=== PATIENT | female | born 1980 | race Caucasian/White ===

== ENCOUNTER 2022-05-23 09:27 | Emergency (ER) | payer MEDICAID ==
[~2022-05-23 09:27] MED LIST: HYDR-4383 PO
== END 2022-05-23 12:56 | disposition left against medical advice (07) ==
LOC: ER 09:28
DX: F41.9 Anxiety disorder, unspecified (principal); Z53.21 Procedure and treatment not carried out due to patient leaving prior to being seen by health care provider

== ENCOUNTER 2024-12-17 15:34 | Emergency (ER) | payer MEDICAID ==
[~2024-12-17] VITALS: Ht 170.2 cm; Wt 68.0 kg
[2024-12-17 15:43] VITALS: BP 132/90; PULSE 75; TEMP 98.2; O2SAT 99
--- NOTE | 2024-12-17 16:17 | RADIOLOGY REPORT ---
CLINICAL INDICATION: WRIST PAIN TECHNIQUE: 3 views left wrist DI WRIST, COMPLETE (3VW MIN) Comparison: None FINDINGS/IMPRESSION: : Comminuted fracture of the distal radial metaphysis Carpal bones intact
--- NOTE | 2024-12-17 16:18 | RADIOLOGY REPORT ---
CLINICAL INDICATION: ARM PAIN TECHNIQUE: 2 views left forearm Comparison: None FINDINGS/IMPRESSION: : Comminuted fracture of the distal radial metaphysis Elbow joint intact
[2024-12-17] MEDS: LIDOcaine 1% W/epiNEPHrine 1:100,000 20ml vial SQ STA (17:59)
--- NOTE | 2024-12-17 18:03 | Physician Documentation ---
History of Present Illness ~ Chief Complaint: Arm Pain Stated Complaint: L ARM PAIN Time Seen by MD: 16:07 Primary Medical Doctor: KRISH BOYD HPI Patient is seen today with complaints of pain of her left wrist for four days with date of injury being on Saturday12/14/2024. Patient states he slipped on some grass and tripped over a curb onto her outstretched hand [place] of the gas station. Patient denies any chest pain or shortness of breath or abdominal pain or nausea, vomiting, diarrhea. She has no other concern or complaint at this time. Tetanus within 5 years: No Medication Reconciliation Allergies: Coded Allergies: codeine (Verified Allergy, Severe, 11/07/14) topiramate (Verified Allergy, Severe, 11/07/14) varenicline (Verified Allergy, Severe, 11/07/14) Scheduled Hydrocodone/Acetaminophen ([place] 5-325 Tablet), 1 TAB PO TID PRN Past Medical History Past Medical History: Anxiety Past Surgical History: no surgical history Alcohol Use: None Drug Use: methamphetamine Lives with: Family Lives In: Home Occupation: employed Review of Systems Constitutional: Denies: chills, fever, weakness Eyes: Denies: pain, blurred vision ENT: Denies: ear pain, nose pain, throat pain, mouth pain Respiratory: Denies: cough, shortness of breath Cardiovascular: Denies: chest pain, palpitations Gastrointestinal: Denies: abdominal pain, nausea, vomiting Genitourinary: Denies: burning, dysuria Female Genitalia: Denies: vaginal discharge, pelvic pain Neurological: Denies: headache, dizziness Musculoskeletal: Denies: pain, swelling Integumentary: Denies: rash, lesions Allergic/Immunologic: Denies: hives, itching Hematologic/Lymphatic: Denies: no symptoms reported Psychiatric: Denies: depression, anxiety Physical Exam Vital Signs: Temperature: 98.2, Source: Temporal, Heart Rate: 75, Respiratory Rate: 16, BP: 132/90, Pulse Oximetry: 99, Weight: 68.000 Oxygen Flow Rate: 0 Physical Exam General: Awake and Alert, no acute distress. HEENT: Conjunctiva pink, Sclera clear, Mucus Membranes moist. Neck: Supple without masses and tenderness. Resp: Unlabored. Lungs clear to auscultation bilaterally. Heart: Regular Rate and rhythm, normal S1 and S2 without murmur, rub or gallop. Musculoskeletal: Patient on exam does have obvious deformity of the left distal radius. Patient is neurovascularly intact distally. Patient does have moderate swelling of left wrist and digits. Patient has significant tenderness to palpation to the left distal radius. Motor function is intact distally. Extremities: No cyanosis,clubbing or edema. Skin: Warm and Dry. Progress Results/Orders Results/Orders Completed Orders - CAIT TADEO Lidocaine 1% W/Epi 1:100,000 (Xylocaine (12/17/24 17:23) Oxycodone Immed Release Tablet (Oxy Ir T (12/17/24 18:02) Medications Received in ER Medications (Trade) Dose Ordered Sig/Remy Route PRN Reason Start Time Stop Time Status Last Admin Dose Admin (OXY IR tablet) 10 mg ONCE STAT PO 12/17/24 18:02 12/17/24 18:07 DC 12/17/24 18:11 10 MG Vital Signs 12/17/24 12/17/24 15:43 18:11 Temp 98.2 Pulse 75 Resp 16 16 B/P (MAP) 132/90 Pulse Ox 99 O2 Flow Rate 0 EKG/XRAY/CT/US/VASC/MRI Bone/Soft Tissue X-Ray (Ext.) : Additional Comment X-ray of the left distal radius/left wrist interpreted by myself today shows displaced comminuted fracture of the left distal radius. DIAGNOSTIC RADIOLOGY Patient: NOLVIA TAMAYO Medical Record: [id number] [facility] : 1980, Age: 44 Sex: Female Location: ER Patient Status: REG ER Service Date/Time: 12/17/24 1546 Ordering Physician: BRUNO MIGUEL MD Exam: WRIST, COMPLETE (3VW MIN) CLINICAL INDICATION: WRIST PAIN TECHNIQUE: 3 views left wrist DI WRIST, COMPLETE (3VW MIN) Comparison: None FINDINGS/IMPRESSION: : Comminuted fracture of the distal radial metaphysis Carpal bones intact Electronically Signed by:WANDA GRANT MD Date & Time: 12/17/241614 Dictated by: WANDA GRANT MD Dictation date and time: 12/17/241614 Primary Care Provider: NO PRIMARY CARE PROVIDER cc: BRUNO MIGUEL MD ~ Medical Decision Making Findings Patient is seen today with complaints of pain of her left wrist for four days with date of injury being on Saturday12/14/2024. Patient states he slipped on some grass and tripped over a curb onto her outstretched hand [place] of the gas station. Patient denies any chest pain or shortness of breath or abdominal pain or nausea, vomiting, diarrhea. She has no other concern or complaint at this time. Patient did have x-ray of left distal radius that showed comminuted fracture of the left distal radius. Patient did have splint placed and patient will follow up with [facility] as soon as possible for surgical consult. Patient will return to ED with any worsening, concerning or changing symptoms. Patient will take Tylenol as needed for symptomatic pain relief. Departure Disposition: HOME / SELF CARE / HOMELESS Impression: Primary Impression: Distal radial fracture Qualified Codes: S52.502A - Unspecified fracture of the lower end of left radius, initial encounter for closed fracture Condition: Improved Discharge Instructions: Extremity Fracture Additional Instructions: Patient did have x-ray of left distal radius that showed comminuted fracture of the left distal radius. Patient did have splint placed and patient will follow up with [facility] as soon as possible for surgical consult. Patient will return to ED with any worsening, concerning or changing symptoms. Patient will take Tylenol as needed for symptomatic pain relief. Referrals: NO PRIMARY CARE PROVIDER (PCP) Prescriptions Hydrocodone Bit/Acetaminophen (Hydrocodone-[place] 10-325 Tablet) 10mg/325mg Tablet 1 TAB PO Q12H PRN PRN for pain for 5 Days, #10 TAB Prov: CAIT TADEO 12/17/24 Signature Scribe Signature: No scribe Attestation: No scribe CAIT TADEO Dec 17, 2024 18:03
[2024-12-17 18:11] VITALS: RESP 16
[2024-12-17] MEDS: oxyCODONE IR 5mg (immed. release) tablet PO STA (18:11)
[2024-12-17] MEDS ORDERED: HYDR-3973 PO (19:30)
--- NOTE | 2024-12-17 20:03 | RADIOLOGY REPORT ---
CLINICAL INDICATION: post reduction TECHNIQUE: Left DI WRIST,LIMITED (AP/LAT) Comparison: None FINDINGS/IMPRESSION: : Overlying cast obscures bony and soft-tissue detail. Comminuted and displaced fracture of the distal radius with some interval improvement in alignment postreduction.
== END 2024-12-17 19:41 | disposition home or self-care (01) ==
LOC: ER 15:34
DX: S52.592A Other fractures of lower end of left radius, initial encounter for closed fracture (principal); F41.9 Anxiety disorder, unspecified; F15.90 Other stimulant use, unspecified, uncomplicated; Z88.5 Allergy status to narcotic agent; Z88.8 Allergy status to other drugs, medicaments and biological substances; Z79.899 Other long term (current) drug therapy; W22.8XXA Striking against or struck by other objects, initial encounter; Y93.89 Activity, other specified; Y92.89 Other specified places as the place of occurrence of the external cause; Y99.8 Other external cause status
CPT/HCPCS: 29125; 73090; 73100; 73110; 99284; A4565; A6446; A6449